=== PATIENT | female | born 2000 | race Caucasian/White ===

== ENCOUNTER → 2021-04-02 15:04 | Outpatient (BNVA) | payer SELFPAY | PROVIDERS: PCP Pediatrics | DX: Z76.89 Persons encountering health services in other specified circumstances (principal) ==

== ENCOUNTER 2023-07-25 13:00 | Emergency (ER) | payer OTHER, SELFPAY ==
[2023-07-25 13:08] VITALS: BP 127/92; PULSE 82; RESP 18; TEMP 36.6; O2SAT 100; BMI 20.8
--- NOTE | 2023-07-25 13:12 | ED.GENADULT ---
HPI - General Adult General Chief complaint: Animal Bite Stated complaint: Dog bite thumb Time Seen by Provider: 07/25/23 15:48 Source: patient Mode of arrival: ambulatory Limitations: no limitations History of Present Illness HPI narrative: 23 yold female healthy presents to the ED for Right thumb and left thigh dog bite by her neighbor's dog. Patient states she called and spoke to her neighbor who states the dog is vaccinated with rabies vaccine. Patient states the dog got loose from his leash was trying to fight her dog and she will try to protect her dog and the dog bit her. Patient denies any other complaints Related Data Previous Rx's Medication Instructions Recorded amoxicillin 875 mg-potassium 1 tab PO Q12H 10 days #20 tabs 07/25/23 clavulanate 125 mg tablet Allergies Allergy/AdvReac Type Severity Reaction Status Date / Time No Known Allergies Allergy Verified 07/25/23 13:12 Review of Systems Review of Systems: Dog bite to right thumb and left thigh Yes all other systems are reviewed and are negative PMFSH Social History Social History Advance Directives: No Advance Directives Information Provided: No Physical Exam ED Vital Signs: Vital Signs - 24 hr 07/25/23 13:08 Temperature 97.8 F Pulse Rate 82 Respiratory Rate 18 Blood Pressure 127/92 H Pulse Oximetry 100 Oxygen Delivery Method Room Air BMI result Body Mass Index 20.8 Const General: cooperative, healthy appearing, comfortable, no acute distress, well developed, alert, awake and Physically active Orientation/consciousness: oriented to person, oriented to place, oriented to time and patient oriented x3 HENMT Head: Yes normal to inspection, Yes No palpable skull fracture present and Yes normocephalic Eyes General: appearance normal, both eyes and all related structures Neck Neck: Yes normal visual inspection, Yes full ROM, Yes no lymphadenopathy, Yes no meningeal signs, Yes trachea midline, Yes supple, No anterior neck swelling and No tender Chest Chest palpation & inspection: normal inspection of the chest and normal palpation of entire chest wall Resp Effort & Inspection: normal respiratory effort and able to speak in complete sentences Auscultation: clear to auscultation bilaterally Cardio Jugular venous distension: no JVD Heart sounds: S1 normal heart sound present and S2 normal heart sound present GI Inspection: Yes normal to inspection Palpation (GI): Soft to palpation, not firm, nontender, no guarding and not rigid General: Yes no CVA tenderness Back/Spine/Pelvis Back: no CVA tenderness Skin General skin exam: no rashes or lesions noted and elasticity normal Neuro General: oriented to person, oriented to place, oriented to time, patient oriented x3, gait normal, tone normal, moves all extremities, Normal light touch and pain sensation, no meningeal signs, no focal motor deficits, CN's II-XI intact bilaterally and normal sensation to monofilament Extrem General: Yes normal to inspection and Yes full ROM Hand/finger images: 1. Dog bite very superficial. negative for puncture. patient has complete range of motion of finger. Negative for signs of tendon/nerve injury. Negative for erythema or pus discharge. Negative for signs of tenosynovitis Knee images: 1. very superficial abrasions. no active bleeding. motor/neuro/vascular exam is intact. Psych Appearance: grossly normal, well kempt and not disheveled Course Course Course Narrative: Patient complains of bite from stray dog to her right thumb and left leg, right thumb bite is superficial, dog is unknown This rapid medical exam done in triage pending full evaluation by ER provider and dispo by ER provider Medications Administered Discontinued Medications Generic Name Dose Route Start Last Admin Trade Name Freq PRN Reason Stop Dose Admin Diphtheria/Tetanus/Acell Pertussis 0.5 ml 07/25/23 16:15 07/25/23 16:25 Diphth,Pertus(Acell),Tet Adult 0.5 Ml Syringe IM 07/25/23 16:16 0.5 ml .ONCE ONE Administration Medical Decision Making Medical Decision Making [facility] Narrative: 23 yold female presents to the ED for dog bite by neghibcarrie dog. patient was informed her by neighbors that the dog is uptodate with rabies vaccine. patient not up-to-date with tetanus. No signs of nerve/ tendon injury. Patient educated on necessity for antibiotics. Patient informed to confirm with neighbor for paperwork for vaccination status rabies for dog. Patient also informed that the neighbor's dog could be monitored for 10 days to look for signs of rabies. Once again patient states neighbor informed the dog is up-to-date with rabies but she would confirm and if neighbor can't confirm rabies vaccination status she will return for vaccine of rabies. Differential Diagnosis Differential Diagnoses: The differential diagnosis associated with the presentation includes (Dog bite) Admission/Observation Consideration of admission/observation: Escalation of care including admission/observation considered External Record Review External record reviewed: Other (Prior Visist) Discharge Plan Discharge Clinical Impression: Dog bite Patient Disposition: Home, Self-Care Instructions: Animal Bite (ED) Additional Instructions: Return to the ED for any finger swelling, redness, pus discharge, foul odor, bluish black discoloration, red streaks, or any other concerning symptoms. Please follow-up with your primary care provider. Confirm rabies vaccine status of dog with neighbor. Prescriptions: New amoxicillin-pot clavulanate 875-125 mg tablet 1 tab PO Q12H 10 Days Qty: 20 0RF Stand Alone Forms: Work/School Release Interventions: ED Discharge Assessment Last Done: 07/25/23 17:01 Discharge Date/Time: 07/25/23 17:02 Print Language: Faroese
[2023-07-25] MEDS: Diphth,Pertus(ACell),Tet Adult 0.5 ML SYRINGE IM (16:25)
== END 2023-07-25 17:02 | disposition home or self-care (01) ==
PROVIDERS: Emergency Provider Emergency Medicine; PCP Physician Assistant
DX: S71.152A Open bite, left thigh, initial encounter (principal); S60.371A Other superficial bite of right thumb, initial encounter; W54.0XXA Bitten by dog, initial encounter; Y93.9 Activity, unspecified; Y92.414 Local residential or business street as the place of occurrence of the external cause; Y99.9 Unspecified external cause status
CPT/HCPCS: 90471; 90715; 99283; 99284